=== PATIENT | female | born 1930 | race Caucasian/White ===

== ENCOUNTER 2019-02-26 17:18 | Emergency (ER) | payer BC ==
[~2019-02-26] VITALS: Ht 149.9 cm; Wt 88.5 kg
[2019-02-26 18:27] LABS: BASO # 0.1 x10^3/uL (0.0-0.2); BASO % 1 % (0-3); EOS # 0.2 x10^3/uL (0.0-0.7); EOS % 4 % (0-3); HEMATOCRIT 39.3 % (36.0-47.0); HEMOGLOBIN 13.4 g/dL (12.0-15.5); LYMPH # 2.1 x10^3/uL (1.0-4.8); LYMPH % 38 % (24-48); MEAN CORPUSCULAR HEMOGLOBIN 32 pg (25-35); MEAN CORPUSCULAR HGB CONC 34 g/dL (31-37); MEAN CORPUSCULAR VOLUME 94 fL (79-100); MONO # 0.6 x10^3/uL (0.0-1.1); MONO % 10 % (0-9); NEUT # 2.6 x10^3/uL (1.8-7.7); NEUT % 47 % (31-73); PLATELET COUNT 223 x10^3/uL (140-400); RED BLOOD COUNT 4.16 x10^6/uL (3.50-5.40); RED CELL DISTRIBUTION WIDTH 14.2 % (11.5-14.5); WHITE BLOOD COUNT 5.5 x10^3/uL (4.0-11.0)
[2019-02-26] MEDS ORDERED: IV NORMAL SALINE 1000ML BAG 1,000 ML IV ONE (18:30)
[2019-02-26 18:32] LABS: BILIRUBIN,URINE NEGATIVE (NEG); CLARITY,URINE CLOUDY; COLOR,URINE YELLOW; NITRITE,URINE NEGATIVE (NEG); PROTEIN,URINE NEGATIVE (NEG-TRACE); UROBILINOGEN,URINE 0.2 mg/dL (0.2 mg/dL)
[2019-02-26 18:36] LABS: CALCIUM 9.2 mg/dL (8.5-10.1); CREATININE 0.8 mg/dL (0.6-1.0); GFR 67.8; POTASSIUM 3.3 mmol/L (3.5-5.1)
[2019-02-26 18:41] LABS: BACTERIA,URINE MODERATE /HPF (0-FEW); SQUAMOUS EPITHELIAL CELL,UR MANY /LPF
[2019-02-26 18:43] LABS: ALBUMIN 3.9 g/dL (3.4-5.0); MAGNESIUM 1.9 mg/dL (1.8-2.4); TOTAL BILIRUBIN 0.7 mg/dL (0.2-1.0); TOTAL PROTEIN 7.7 g/dL (6.4-8.2)
[2019-02-26] MEDS ORDERED: MECLIZINE HCL 12.5 MG TABLET. PO ONE (18:45)
--- NOTE | 2019-02-26 18:45 | RAD ---
CT HEAD WO CONTRAST Indication: Dizziness. Exposure: One or more of the following individualized dose reduction techniques were utilized for this examination: 1. Automated exposure control 2. Adjustment of the mA and/or kV according to patient size 3. Use of iterative reconstruction technique. Technique: Standard imaging without intravenous contrast. Comparison: None FINDINGS: Intracranial arterial calcifications are identified. No evidence of acute intracranial hemorrhage, mass effect, midline shift or abnormal extra-axial fluid collection. Mild generalized atrophy. Low-density in the white matter bilaterally, a nonspecific finding, but which is commonly due to chronic small vessel ischemic disease in a patient of this age. The visualized sinuses demonstrate mild tissue within the right maxillary sinus, only partially seen, likely polypoid mucosal thickening or mucous retention cyst. Opacity within the right mastoid air cells. No acute skull abnormality. The orbits appear unremarkable. No significant scalp swelling. IMPRESSION: 1. No evidence of acute intracranial hemorrhage. 2. Right mastoid sinus disease. 3. Other findings as detailed above. Electronically signed by: Marc Goins MD (02/26/2019 6:42 PM) [facility]
[2019-02-26 18:49] LABS: CREATINE KINASE 69 U/L (26-192)
[2019-02-26] MEDS ORDERED: DOXY100T PO (19:58)
--- NOTE | 2019-02-26 19:59 | PHYS DOC ---
Past Medical History Past Medical History: Arthritis, Hypertension (BERTO DELEON APRN) Past Surgical History: Cholecystectomy, Hysterectomy (BERTO DELEON APRN) Alcohol Use: None Drug Use: None (BERTO DELEON APRN) Adult General Chief Complaint Chief Complaint: DIZZY/LIGHT HEADED HPI HPI Patient is a 89 year old female with history of hypertension who presents to the ED today with multiple complaints. Patient states she's had tingling to her bilateral fingers for 3 days but today is on the left fingers primarily. She is also complaining of dizziness, she states she has history of chronic dizziness. Denies any exacerbating or relieving factors to her dizziness. Denies any fever, chest pain, shortness of breath, denies any headache. Denies any nausea vomiting. (BERTO DELEON APRN) Review of Systems Review of Systems Constitutional: Denies fever or chills [] Eyes: Denies change in visual acuity, redness, or eye pain [] HENT: Denies nasal congestion or sore throat [] Respiratory: Denies cough or shortness of breath [] Cardiovascular: No additional information not addressed in HPI [] GI: Denies abdominal pain, nausea, vomiting, bloody stools or diarrhea [] : Denies dysuria or hematuria [] Musculoskeletal: Denies back pain or joint pain [] Integument: Denies rash or skin lesions [] Neurologic: Reports dizziness, tingling to fingers bilaterally. Reports weakness. Denies headache, focal weakness or sensory changes [] All other systems were reviewed and found to be within normal limits, except as documented in this note. (BERTO DELEON APRN) Current Medications Current Medications Current Medications Medications (Trade) Dose Ordered Sig/Peyman Start Time Stop Time Status Last Admin Dose Admin Meclizine HCl (Antivert) 25 mg 1X ONCE 02/26/19 18:45 02/26/19 18:46 DC 02/26/19 18:43 25 MG Sodium Chloride 1,000 ml @ 1,000 mls/hr 1X ONCE 02/26/19 18:30 02/26/19 19:29 DC 02/26/19 18:43 1,000 MLS/HR (MARC HUYNH DO) Allergies Allergies Allergies Coded Allergies Type Severity Reaction Last Updated Verified Penicillins Allergy Unknown Rash 02/26/19 Yes (MARC HUYNH DO) Physical Exam Physical Exam Constitutional: Well developed, well nourished, no acute distress, non-toxic a ppearance. [] HENT: Normocephalic, atraumatic, bilateral external ears normal, oropharynx moist, no oral exudates, nose normal. [] Eyes: PERRLA, EOMI, conjunctiva normal, no discharge. [] Neck: Normal range of motion, no tenderness, supple, no stridor. [] Cardiovascular:Heart rate regular rhythm, no murmur [] Lungs & Thorax: Bilateral breath sounds clear to auscultation [] Abdomen: Bowel sounds normal, soft, no tenderness, no masses, no pulsatile masses. [] Skin: Warm, dry, no erythema, no rash. [] Back: No tenderness, no CVA tenderness. [] Extremities: No tenderness, no cyanosis, no clubbing, ROM intact, no edema. [] Neurologic: Alert and oriented X 3, normal motor function, normal sensory function, no focal deficits noted. Cranial nerves II through XII intact. Psychologic: Affect normal, judgement normal, mood normal. [] (BERTO DELEON APRN) Current Patient Data Vital Signs Vital Signs Date Time Temp Pulse Resp B/P (MAP) Pulse Ox O2 Delivery O2 Flow Rate FiO2 02/26/19 20:00 64 16 99 02/26/19 17:45 98.3 165/74 (104) Room Air 98.3 (HUYNH,[facility]) Lab Values Laboratory Tests Test 02/26/19 17:45 02/26/19 18:15 Urine Collection Type Unknown Urine Color Yellow Urine Clarity Cloudy Urine pH 7.0 Urine Specific [place] 1.015 Urine Protein Negative mg/dL (NEG-TRACE) Urine Glucose (UA) Negative mg/dL (NEG) Urine Ketones (Stick) Negative mg/dL (NEG) Urine Blood Trace (NEG) Urine Nitrite Negative (NEG) Urine Bilirubin Negative (NEG) Urine Urobilinogen Dipstick 0.2 mg/dL (0.2 mg/dL) Urine Leukocyte Esterase Moderate (NEG) Urine RBC 1-2 /HPF (0-2) Urine WBC 5-10 /HPF (0-4) Urine Squamous Epithelial Cells Many /LPF Urine Bacteria Moderate /HPF (0-FEW) Urine Mucus Slight /LPF White Blood Count 5.5 x10^3/uL (4.0-11.0) Red Blood Count 4.16 x10^6/uL (3.50-5.40) Hemoglobin 13.4 g/dL (12.0-15.5) Hematocrit 39.3 % (36.0-47.0) Mean Corpuscular Volume 94 fL (79-100) Mean Corpuscular Hemoglobin 32 pg (25-35) Mean Corpuscular Hemoglobin Concent 34 g/dL (31-37) Red Cell Distribution Width 14.2 % (11.5-14.5) Platelet Count 223 x10^3/uL (140-400) Neutrophils (%) (Auto) 47 % (31-73) Lymphocytes (%) (Auto) 38 % (24-48) Monocytes (%) (Auto) 10 % (0-9) H Eosinophils (%) (Auto) 4 % (0-3) H Basophils (%) (Auto) 1 % (0-3) Neutrophils # (Auto) 2.6 x10^3/uL (1.8-7.7) Lymphocytes # (Auto) 2.1 x10^3/uL (1.0-4.8) Monocytes # (Auto) 0.6 x10^3/uL (0.0-1.1) Eosinophils # (Auto) 0.2 x10^3/uL (0.0-0.7) Basophils # (Auto) 0.1 x10^3/uL (0.0-0.2) Sodium Level 140 mmol/L (136-145) Potassium Level 3.3 mmol/L (3.5-5.1) L Chloride Level 105 mmol/L (98-107) Carbon Dioxide Level 24 mmol/L (21-32) Anion Gap 11 (6-14) Blood Urea Nitrogen 35 mg/dL (7-20) H Creatinine 0.8 mg/dL (0.6-1.0) Estimated GFR (Cockcroft-Gault) 67.8 BUN/Creatinine Ratio 44 (6-20) H Glucose Level 107 mg/dL (70-99) H Calcium Level 9.2 mg/dL (8.5-10.1) Magnesium Level 1.9 mg/dL (1.8-2.4) Total Bilirubin 0.7 mg/dL (0.2-1.0) Aspartate Amino Transferase (AST) 25 U/L (15-37) Alanine Aminotransferase (ALT) 25 U/L (14-59) Alkaline Phosphatase 96 U/L (46-116) Creatine Kinase 69 U/L (26-192) Creatine Kinase MB (Mass) 1.7 ng/mL (0.0-3.6) Creatine Kinase MB Relative Index % (0-4) Troponin I Quantitative < 0.017 ng/mL (0.000-0.055) GR-Vye-Q-Type Natriuretic Peptide 294 pg/mL (0-449) Total Protein 7.7 g/dL (6.4-8.2) Albumin 3.9 g/dL (3.4-5.0) Albumin/Globulin Ratio 1.0 (1.0-1.7) Lipase 196 U/L (73-393) Thyroid Stimulating Hormone (TSH) 6.349 uIU/mL (0.358-3.74) H Laboratory Tests 02/26/19 18:15 Laboratory Tests 02/26/19 18:15 (MARC HUYNH DO) EKG EKG [address] Caballero sinus rhythm HR 65 no STEMI[] (BERTO DELEON APRN) Radiology/Procedures Radiology/Procedures []PROCEDURE: CT HEAD WO CONTRAST CT HEAD WO CONTRAST Indication: Dizziness. Exposure: One or more of the following individualized dose reduction techniques were utilized for this examination: 1. Automated exposure control 2. Adjustment of the mA and/or kV according to patient size 3. Use of iterative reconstruction technique. Technique: Standard imaging without intravenous contrast. Comparison: None FINDINGS: Intracranial arterial calcifications are identified. No evidence of acute intracranial hemorrhage, mass effect, midline shift or abnormal extra-axial fluid collection. Mild generalized atrophy. Low-density in the white matter bilaterally, a nonspecific finding, but which is commonly due to chronic small vessel ischemic disease in a patient of this age. The visualized sinuses demonstrate mild tissue within the right maxillary sinus, only partially seen, likely polypoid mucosal thickening or mucous retention cyst. Opacity within the right mastoid air cells. No acute skull abnormality. The orbits appear unremarkable. No significant scalp swelling. IMPRESSION: 1. No evidence of acute intracranial hemorrhage. 2. Right mastoid sinus disease. 3. Other findings as detailed above. Electronically signed by: Marc Goins MD (02/26/2019 6:42 PM) [facility] DICTATED and SIGNED BY: MARC GOINS MD DATE: 02/26/191841 (BERTO DELEON APRN) Course & Med Decision Making Course & Med Decision Making Pertinent Labs and Imaging studies reviewed. (See chart for details) This is a 89-year-old female patient presenting to the ED today with multiple complaints including tingling to bilateral fingers worse on the left, generalized weakness, dizziness which is chronic. CT of the head is negative for any acute findings, noted for right sinus disease. Urine analysis is noted for UTI, CBC with a normal WBC, CMP with potassium of 3.3, encouraged oral potassium dietary intake. Patient was given IV fluids. Feeling better. Requesting to be discharged. Discharge on doxycycline to cover her for UTI as well as sinus infection and follow-up with her own doctor in the course of this week. (BERTO DELEON APRN) Dragon Disclaimer Dragon Disclaimer This electronic medical record was generated, in whole or in part, using a voice recognition dictation system. (BERTO DELEON APRN) Departure Departure Impression: Primary Impression: Dizziness Additional Impressions: Acute sinusitis Urinary tract infection Disposition: HOME, SELF-CARE Condition: STABLE Referrals: LILIAM MAE MD (PCP) follow up in the next one week Patient Instructions: Sinusitis, Urinary Tract Infection Additional Instructions: You were evaluated in the emergency, noted to have sinus infection as well as urinary tract infection. We put you on antibiotics, take them as prescribed until completed. Push fluids. Follow-up with your own doctor in the course of this week or next week. Scripts Doxycycline Hyclate (DOXYCYCLINE HYCLATE) 100 Mg Tablet 1 TAB PO BID, #20 TAB Prov: BERTO DELEON APRN 02/26/19 Attending Signature Attending Signature I have reviewed the PA/FIELD NURSE CASE MANAGER's note and plan of care. I was available for con sultation as needed during the patient's visit in the emergency department. I agree with the clinical impression, plan, and disposition. (MARC HUYNH DO) Problem Qualifiers Additional Impressions: Acute sinusitis Sinusitis location: maxillary Recurrence: not specified as recurrent Qualified Codes: J01.00 - Acute maxillary sinusitis, unspecified Urinary tract infection Urinary tract infection type: site unspecified Hematuria presence: without hematuria Qualified Codes: N39.0 - Urinary tract infection, site not specified BERTO DELEON APRN Feb 26, 2019 19:59 MARC HUYNH DO Feb 28, 2019 05:20
[2019-02-26 20:00] VITALS: BP 162/72
--- NOTE | 2019-02-26 23:58 | RAD ---
Exam: Chest one view INDICATION: Dizziness TECHNIQUE: Frontal view of the chest Comparisons: None FINDINGS: The cardiomediastinal silhouette and pulmonary vessels are within normal limits. The lung and pleural spaces are clear. IMPRESSION: No acute cardiopulmonary process. Electronically signed by: Anahi Mari MD (02/26/2019 11:55 PM) [facility]
--- NOTE | 2019-02-27 06:04 | EKG ---
[facility] [address] [place] [address] Test Date: 2019-02-26 Test Time: 18:46:41 Pat Name: ELSI MATHUR Department: Room: Gender: F Automatic [employer] Developer: : [id number] Requested By: BERTO DELEON Order Number: [id number] Reading MD: Measurements Intervals [place] Rate: 64 P: 23 LA: 206 QRS: 4 QRSD: 82 T: 19 QT: 440 QTc: 458 Interpretive Statements SINUS RHYTHM R-S TRANSITION ZONE IN V LEADS DISPLACED TO THE RIGHT INCOMPLETE RIGHT BUNDLE BRANCH BLOCK OTHERWISE NORMAL ECG No previous ECG available for comparison
== END 2019-02-26 20:00 | disposition home or self-care (01) ==
LOC: ER 17:18
DX: R42 Dizziness and giddiness (principal); N39.0 Urinary tract infection, site not specified; J01.00 Acute maxillary sinusitis, unspecified; M19.90 Unspecified osteoarthritis, unspecified site; R20.2 Paresthesia of skin; I10 Essential (primary) hypertension; Z90.49 Acquired absence of other specified parts of digestive tract; Z90.710 Acquired absence of both cervix and uterus; Z88.0 Allergy status to penicillin
CPT/HCPCS: 36415; 70450; 71045; 80053; 81001; 82553; 83690; 83735; 83880; 84443; 84484; 85025; 93005; 96360; 99285; J7030; J8597